=== PATIENT | female | born 1960 | race Caucasian/White ===

== ENCOUNTER 2016-11-23 08:03 | Observation (INO) | payer MEDICAID ==
[~2016-11-23] VITALS: Ht 165.1 cm; Wt 51.9 kg
[2016-11-23] MEDS ORDERED: LORAZEPAM0.5 MG (08:38)
[2016-11-23] MEDS ORDERED: SENNA8.6 M2 GT (08:39)
[2016-11-23] MEDS ORDERED: MORPHINE SULFAT15 M7 (08:39)
[2016-11-23 08:48] LABS: PLATELET COUNT 363 x10^3mcL (130-400)
[2016-11-23 08:59] LABS: ALKALINE PHOSPHATASE 301 U/L (46-116); ALT/SGPT 37 U/L (14-59); AMYLASE 110 U/L (25-115); AST/SGOT 44 U/L (15-37); BILIRUBIN TOTAL 5.1 mg/dL (0.20-1.00); CARBON DIOXIDE 32.2 mmol/L (21-32); CHLORIDE SERUM 101 mmol/L (98-107); CREATININE SERUM 0.6 mg/dL (0.6-1.0); GFR1 > 60 mL/min; GLUCOSE SERUM 158 mg/dL (74-106); LIPASE 589 IU/L (73-393); SODIUM SERUM 143 mmol/L (136-145); TOTAL PROTEIN, SERUM 8.2 g/dL (6.4-8.2)
[2016-11-23 09:06] LABS: ALBUMIN 1.2 g/dL (3.4-5.0)
[2016-11-23 09:26] VITALS: BP 115/75
[2016-11-23 09:43] LABS: RED CELL DISTRIBUTION WIDTH 18.9 % (11.5-14.5)
[2016-11-23 10:02] VITALS: BP 115/75
[2016-11-23 10:19] LABS: BAND NEUTROPHIL 3 % (0-10); BASOPHIL 0 % (0-2); MONOCYTE 3 % (0-7); SEGMENTED NEUTROPHILS 90 % (37-75)
[2016-11-23 10:20] LABS: rbc morphology (normal/abnorm) ABNORMAL (NORMAL)
[2016-11-23 12:06] LABS: FREE T4 1.56 ng/dL (0.76-1.46); FREE THYROXINE INDEX 3.2 ug/dL (1.4-4.5); T4(THYROXINE) 8.2 ug/dL (4.7-13.3)
[2016-11-23 12:16] LABS: T3 TOTAL 0.53 ng/mL
[2016-11-23 12:23] LABS: CHOLESTEROL/HDL RATIO 10.5
[2016-11-23 20:38] VITALS: BP 99/60
[2016-11-24 06:06] VITALS: BP 122/78
[2016-11-24 06:07] VITALS: BP 122/78
[2016-11-24 06:09] LABS: BASOPHIL % 0.3 % (0-2)
[2016-11-24 06:19] LABS: CALCIUM 7.6 mg/dL (8.5-10.1); CARBON DIOXIDE 32.2 mmol/L (21-32); CHLORIDE SERUM 106 mmol/L (98-107); CREATININE SERUM 0.7 mg/dL (0.6-1.0); GFR1 > 60 mL/min; GLUCOSE SERUM 323 mg/dL (74-106); MAGNESIUM 2.1 mg/dL (1.8-2.4); PHOSPHOROUS 2.5 mg/dL (2.5-4.9); SODIUM SERUM 144 mmol/L (136-145)
[2016-11-24 06:33] LABS: POTASSIUM SERUM 2.9 mmol/L (3.5-5.1)
[2016-11-24 07:30] LABS: PLATELET COUNT 410 x10^3mcL (130-400); RED CELL DISTRIBUTION WIDTH 18.5 % (11.5-14.5)
[2016-11-24 09:35] VITALS: BP 124/81
[2016-11-24] MEDS ORDERED: MORPHINE SULFAT15 M7 PO (11:18)
[2016-11-24] MEDS ORDERED: LORAZEPAM0.5 MG PO (11:19)
[2016-11-24] MEDS ORDERED: LAC GT (11:21)
[2016-11-24] MEDS ORDERED: LEVAQUIN750 MG GT (11:21)
[2016-11-24] MEDS ORDERED: CLEOCIN HCL300 MG GT (11:21)
[2016-11-24 11:33] VITALS: BP 124/81
[2016-11-24] MEDS ORDERED: METFORMIN HCL500 MG PO (13:34)
== END 2016-11-24 17:10 | disposition hospice, home (50) | DRG 254 ==
LOC: ED 08:03 → DU 08:29
PROVIDERS: Emergency Medicine; Internal Medicine Gastroenterology; ADMIT Family Medicine
PROC: 0D20XUZ Change Feeding Device in Upper Intestinal Tract, External Approach (ICD-10-PCS; principal; 2016-11-23 12:30)
DX: Z43.1 Encounter for attention to gastrostomy (principal); J69.0 Pneumonitis due to inhalation of food and vomit; E43 Unspecified severe protein-calorie malnutrition; K85.90 Acute pancreatitis without necrosis or infection, unspecified; C78.89 Secondary malignant neoplasm of other digestive organs; C23 Malignant neoplasm of gallbladder; K56.7 Ileus, unspecified; E87.6 Hypokalemia; Z66 Do not resuscitate; Z51.5 Encounter for palliative care; Z68.1 Body mass index [BMI] 19.9 or less, adult
CPT/HCPCS: 43760; 80307; 83880; 84439; G0378; J1170; J2270; J2543; J7030; Q0092; Q9963